=== PATIENT | male | born 1970 | race Caucasian/White ===

== ENCOUNTER 2017-08-12 18:59 | Emergency (ER) | payer OTHER ==
[~2017-08-12] VITALS: Ht 167.6 cm; Wt 68.6 kg
[~2017-08-12 18:59] MED LIST: PERCOCET 5/31 TABLET PO
[2017-08-12 20:11] LABS: HEMATOCRIT 39.6 % (38.0-50.0); MCH 27.7 PG (29.0-34.0); MCHC 33.6 G/DL (30.0-36.0); MCV 82.5 FL (86-99); MEAN PLAT.VOLUME 9.6 uM^3 (9.0-12.4); PLATELET COUNT 135 K/uL (156-360); RBC DIS.WIDTH-CV 13.9 % (11.8-14.6); RBC DIS.WIDTH-SD 41.4 % (39-53); WHITE BLOOD COUNT 5.4 K/uL (4.1-10.2)
[2017-08-12 20:15] LABS: PROTHROMBIN TIME 11.4 SEC (10.2-12.9)
[2017-08-12 20:17] LABS: PTT 30.5 SEC (25-37)
[2017-08-12 20:18] LABS: CHLORIDE 101 mEq/L (99-109); POTASSIUM 3.6 mEq/L (3.7-5.4); SODIUM 138 mEq/L (136-147)
[2017-08-12 20:20] LABS: GLUCOSE 80 mg/dL (70-99)
[2017-08-12 20:22] LABS: ANION GAP 8 MEQ/L (2-14); TOTAL BILIRUBIN 0.4 mg/dL (0.0-1.0)
[2017-08-12 20:24] LABS: ALKALINE PHOSPHATASE 59 IU/L (3-129); GFR ESTIMATE (CALCULATED) > 59 mL/min/ (58.99-99999)
[2017-08-12 20:25] LABS: UREA NITROGEN (BUN) 13 mg/dL (9-23)
[2017-08-12 20:28] LABS: LIPASE 78 U/L (1.0-51.0)
[2017-08-12 20:29] LABS: TROP-I INTERPRETATION NEGATIVE; TROPONIN-I 0.01 ng/mL (0.0-0.30)
[2017-08-12 21:12] VITALS: BP 127/42
== END 2017-08-12 21:15 | disposition home or self-care (01) ==
LOC: EME 18:59
PROVIDERS: Emergency Medicine
DX: R10.12 Left upper quadrant pain (principal); F41.9 Anxiety disorder, unspecified; I25.2 Old myocardial infarction; Z87.891 Personal history of nicotine dependence; Z88.5 Allergy status to narcotic agent
CPT/HCPCS: 71020; 74020; 80053; 83690; 84484; 85027; 85610; 85730; 93005; 99281; 99285